=== PATIENT | male | born 1940 | race Caucasian/White ===

== ENCOUNTER 2022-03-02 16:34 | Inpatient (IN) | payer MEDICARE ==
[~2022-03-02] VITALS: Ht 188 cm; Wt 112.3 kg
[2022-03-02 18:08] LABS: BASOPHILS ABSOLUTE AUTO 0.05 K/mm3 (0.00-0.23); BASOPHILS PERCENT AUTO 0 % (0-2); EOSINOPHILS ABSOLUTE AUTO 0.02 K/mm3 (0.00-0.68); EOSINOPHILS PERCENT AUTO 0 % (0-6); Hematocrit 39.8 % (37.0-53.0); Hemoglobin 12.3 g/dL (13.5-17.5); IMMATURE GRAN ABSOLUTE AUTO 0.06 K/mm3 (0.00-0.10); IMMATURE GRAN PERCENT AUTO 0 % (0-1); LYMPHOCYTES PERCENT AUTO 4 % (21-46); MONOCYTES ABSOLUTE AUTO 0.81 K/mm3 (0.16-1.47); MONOCYTES PERCENT AUTO 6 % (4-13); Mean Corpuscular HGB 24.6 pg (26.0-34.0); Mean Corpuscular HGB Conc 30.9 g/dL (31.5-36.5); Mean Corpuscular Volume 80 fL (80-100); Mean Platelet Volume 11.3 fL (9.1-12.4); NEUTROPHILS PERCENT AUTO 89 % (41-73); Platelet Count 110 K/mm3 (150-400); RDW Coefficient Variation 19.4 % (11.7-14.2); RDW Standard Deviation 55.2 fL (35.1-46.3); White Blood Cell Count 14.34 K/mm3 (4.00-11.30)
[2022-03-02 18:26] LABS: Bilirubin, Total 1.1 mg/dL (0.1-1.0); Bun/Creatinine Ratio 18.2 (12.0-20.0); Calcium, Blood 9.8 mg/dL (8.5-10.1); Creatinine, Blood 1.21 mg/dL (0.60-1.20); Globulin, Blood 2.9 g/dL (2.2-4.0); Potassium, Blood 4.1 mmol/L (3.5-5.5); Total Protein, Blood 5.9 g/dL (6.4-8.2)
[2022-03-02 18:47] LABS: Influenza A, PCR NEGATIVE (NEGATIVE); Influenza B, PCR NEGATIVE (NEGATIVE); Resp Syncytial Virus, PCR NEGATIVE (NEGATIVE); SARS-Cov-2 (COVID-19) PCR, MMC NEGATIVE (NEGATIVE)
[2022-03-02 22:09] LABS: CHOL/HDL RATIO 3.2; Cholesterol 117 mg/dL (50-200); HDL Cholesterol 36 mg/dL (>39); LDL/HDL RATIO 1.7; Low Density Lipoprotein Chol 63 mg/dL (0-110); Triglycerides 92 mg/dL (30-160); Very Low Density Lipoprot Chol 18 mg/dL (6-32)
[2022-03-03 01:26] LABS: BASOPHILS ABSOLUTE AUTO 0.03 K/mm3 (0.00-0.23); BASOPHILS PERCENT AUTO 0 % (0-2); EOSINOPHILS PERCENT AUTO 0 % (0-6); Hematocrit 38.3 % (37.0-53.0); Hemoglobin 11.8 g/dL (13.5-17.5); IMMATURE GRAN ABSOLUTE AUTO 0.05 K/mm3 (0.00-0.10); IMMATURE GRAN PERCENT AUTO 1 % (0-1); LYMPHOCYTES ABSOLUTE AUTO 0.66 K/mm3 (0.84-5.20); LYMPHOCYTES PERCENT AUTO 7 % (21-46); MONOCYTES ABSOLUTE AUTO 0.54 K/mm3 (0.16-1.47); MONOCYTES PERCENT AUTO 6 % (4-13); Mean Corpuscular HGB 24.6 pg (26.0-34.0); Mean Corpuscular HGB Conc 30.8 g/dL (31.5-36.5); Mean Corpuscular Volume 80 fL (80-100); NEUTROPHILS ABSOLUTE AUTO 7.62 K/mm3 (1.96-9.15); NEUTROPHILS PERCENT AUTO 86 % (41-73); Platelet Count 119 K/mm3 (150-400); RDW Coefficient Variation 19.5 % (11.7-14.2); Red Blood Cell Count 4.79 M/mm3 (4.30-5.90)
[2022-03-03 01:27] LABS: Mean Platelet Volume 11.3 fL (9.1-12.4)
[2022-03-03 01:38] LABS: Anti-Xa UFH, PHA Monitoring <0.10 IU/mL; International Normalized Ratio 1.14; Prothrombin Time Results 11.9 Sec (9.7-11.5)
[2022-03-03 02:09] LABS: Albumin/Globulin Ratio 1.1 (0.8-1.8); Bilirubin, Total 0.6 mg/dL (0.1-1.0); Bun/Creatinine Ratio 16.7 (12.0-20.0); Calcium, Blood 9.3 mg/dL (8.5-10.1); Creatinine, Blood 1.44 mg/dL (0.60-1.20); Globulin, Blood 2.8 g/dL (2.2-4.0); Potassium, Blood 4.7 mmol/L (3.5-5.5); Total Protein, Blood 5.8 g/dL (6.4-8.2)
[2022-03-03] MEDS ORDERED: FURO20 PO (04:37)
[2022-03-03] MEDS ORDERED: ATORVASTATIN CA20 MG PO (04:38)
--- NOTE | 2022-03-03 05:31 | NUR ---
END SHIFT SUMMARY NEW PT ARRIVED FROM ED. PT COMPLAINED OF DIZZYNESS AND NOT FEELING WELL PT ON MONITOR WAS IN AFIB WITH IN 10 MINS PT STATED HE FELT MUCH BETTER LOOK AT MONITIR AND PT HAD CONVERTED OUT OF AFIB AND WAS CURRENTLY IN SINUS. PT DID NOT COMPLAIN OF ANY OTHER "DIZZY" SPELLS. PT IS A&O X4 KNUTSON GENERLIZED WEEKNESS PT IS DEVELOPMENTALY DELAYED AND HEALTH LITERACY IS QUITE LOW. PT HAS AN ELEVATED TROPINE 1400 BNP 85 AND A LATIC OF 2.3 ALL RESULTS GIVEN TO NIGHT HOSPOTALIS. PT WAS STARTED ON HEPARIN. WILL CONTINUE TO MONINTOR AND REPORT OFF TO ONCOMING RN
--- NOTE | 2022-03-03 08:00 | NUR ---
Received report from Noc shift RN. Patient was awake in bed while getting report in room. He asked several questions about A-Fib that was discussed in report. He is alert and oriented enough to ask questions and manage his needs. he repeatedly has questions about same thing and when answered he asked to explain again. He is very fixated on certain subjects. He assist with care.He has 20ga IV to LW and is infusing heparin at 15 unit/kg/hr, he also has 20ga PowerGlide in CJ and is infusing 100 ml/hr. He uses urinal with minimal assist.
[2022-03-03 08:09] LABS: Bun/Creatinine Ratio 18.1 (12.0-20.0); Calcium, Blood 9.1 mg/dL (8.5-10.1); Creatinine, Blood 1.49 mg/dL (0.60-1.20); Potassium, Blood 4.6 mmol/L (3.5-5.5)
--- NOTE | 2022-03-03 09:30 | NUR ---
He has been NPO as to wait to see what Cardiology wants to do. Dr Gonzalez has been by to assess and is going to follow up we ER to find EKG that stated he was in a-fib. He is currently in SR 70's and systolics in the 90-100's and MAP >65. No changes to Heparin and or NS. He remains on RA and sats >90%. Dr Gonzalez will reassess his heparing when Troponins trand down. ECHO ordered.
--- NOTE | 2022-03-03 12:00 | NUR ---
Patient ate lunch and ate everything without crumbs left. No current changes to gtt's. He continues on RA amnd sats >90%. Changed his underwear and place pullup uon him as he stated he was wet. Awainting next Troponin to see if trended down and call Dr Gonzalez to shut off Heparin. He is independent in bed and needs to be reminded not to get out and he states he still feels dizzy whe sitting up. Systolic in the 90's and MAP >65
--- NOTE | 2022-03-03 14:35 | NUR ---
No significant changes with patient. Heparin changed to 14 units/kg/hr change by pharmacy. No other changes. Dr Gonzalez called and we will continue Heparin.
--- NOTE | 2022-03-03 15:30 | NUR ---
Patient has used call light appropriately. Has a little difficult time with urinal but continues to manage and call for assistance. Heparin continues and will do renal function in am to see if he is able to do CT Angio for possible PE. NS continues at 100 ml/hr. He remains on RA and sats >90%.
--- NOTE | 2022-03-03 17:47 | NUR ---
Patient has been resting in bed watching TV off and on He is on RA and sats >90%. He has 20ga IV to LW and is infusing 14 units/kg/hr of Heparin until Renal function tomorrow am and will then see if CT angio is possile. He also has NS at 100ml/hr infusing thro 20 ga PowerGlide in CJ. He has been doing pretty well with using urinal with minimal assist and calls if not. We placed in in pull ups as he has some spillage with urinal occassionally. He has been very pleasant with care and assist with positioning while independent in bed. He is sitting up in bed eating dinner.
--- NOTE | 2022-03-03 19:32 | NUR ---
ASSUMED CARE OF PT RECIEVED BEDSIDE REPORT FROM JAYASHREE MCDANIEL. UPDATED ON GOALS OF CARE AND ACTIVITIES THAT OCCURRED FOR DAYSHIFT.
[2022-03-04 04:06] LABS: Hematocrit 34.9 % (37.0-53.0); Hemoglobin 10.9 g/dL (13.5-17.5); Mean Corpuscular HGB 24.9 pg (26.0-34.0); Mean Corpuscular HGB Conc 31.2 g/dL (31.5-36.5); Mean Corpuscular Volume 80 fL (80-100); Mean Platelet Volume 11.5 fL (9.1-12.4); Platelet Count 107 K/mm3 (150-400); RDW Coefficient Variation 19.7 % (11.7-14.2); RDW Standard Deviation 56.9 fL (35.1-46.3); Red Blood Cell Count 4.37 M/mm3 (4.30-5.90); White Blood Cell Count 9.11 K/mm3 (4.00-11.30)
[2022-03-04 04:18] LABS: Bun/Creatinine Ratio 18.5 (12.0-20.0); Calcium, Blood 9.6 mg/dL (8.5-10.1); Creatinine, Blood 1.3 mg/dL (0.60-1.20); Potassium, Blood 4.4 mmol/L (3.5-5.5)
[2022-03-04 04:40] LABS: Source, Urine Voided
[2022-03-04 04:42] LABS: Appearance, Urine Clear (Clear); Bilirubin, Urine Neg (Neg); Blood, Urine Neg (Neg); Color, Urine Yellow (P-Yellow); Glucose Qualitative, Urine Neg (Neg); Ketones, Urine Neg (Neg); Leukocyte Esterase, Urine Neg (Neg); Nitrite, Urine Neg (Neg); Protein, Urine Neg (Neg); Specific Gravity, Urine 1.015 (1.003-1.022); Urobilinogen, Urine NORM (Normal)
--- NOTE | 2022-03-04 05:48 | NUR ---
END SHIFT SUMMARY PT STRUGGLED WITH SLEEP AT START OF EVENING AFTER FINALY BEING ABLE TO REST. WHILE SLEEPING DEEPLY PT STARTED HAVING DESATURATION EPISODES TO MID 80'S AND ALSO FLIPPING IN AND OUT OF SINUS ARYTHMIA AND BRADICARDIC EPISODES WITH A COUPLE OF SHORT PAUSES. I THEN PLACED PT ON NC 2L AND PT HAS MAINTAINED O2 SATURATIONS AND HAS NOT FLIPPED INTO AN IRREGLAR BRADICARDIC RYTHEM. ADJUSTED HEPARIN DOWN TO 13 UNITS/KG/HR. CREATINE HAS IMPROVED PLAN IS TO DO CTA WILL CONTINUE TO MONITOR AND REPORT TO ONCOMING RN
--- NOTE | 2022-03-04 08:00 | NUR ---
Received report from Noc RN. Patient awake during in room report. He is alert and oriented to baseline. He is currently on 2L via NC as he had some apnea last night and sats 98%. I placed him back on Ra and sats 93%. He is sitting up in bed currently eating breakfast. He has 20ga IV in LW and is infusing Heparin at 13 mcg/kg/min and LR at 100 ml/hr. Dr Mg placed order for CT Angio and will call CT to schedule. He also has 20ga PowerGlide in CJ and has fluids infuaing. He has urinal at bedside and uses appropriately. He has pullup in place. He denies any pain.
--- NOTE | 2022-03-04 10:55 | NUR ---
Patient went to CT and tolerated well. Patient was up to bedside cammode and had small soft cobb stool and recieved quiick bath while up in chair. Fluids and Heparin dc'd and started on Eliquis. Patient is now med with tele. He tolerated am meds with sips of water.
--- NOTE | 2022-03-04 14:58 | NUR ---
No significant changes with patient. He has been sleeping last few hours. He remains on RA and sats >90%. He is awaiting medwith tele bed. Calls appropriately and urinal at bedside .
--- NOTE | 2022-03-04 17:03 | NUR ---
Gave report to RN for 363. Patient is transferring up to [place] [id number] via wheelchair and all his belongings. He remains on RA while awake. Dinner going up with patient.
[2022-03-05 04:45] LABS: Hematocrit 35.3 % (37.0-53.0); Hemoglobin 11.1 g/dL (13.5-17.5); Mean Corpuscular HGB 25.3 pg (26.0-34.0); Mean Corpuscular HGB Conc 31.4 g/dL (31.5-36.5); Mean Corpuscular Volume 81 fL (80-100); Mean Platelet Volume 11.2 fL (9.1-12.4); Platelet Count 102 K/mm3 (150-400); RDW Coefficient Variation 19.6 % (11.7-14.2); RDW Standard Deviation 57.3 fL (35.1-46.3); Red Blood Cell Count 4.38 M/mm3 (4.30-5.90); White Blood Cell Count 7.36 K/mm3 (4.00-11.30)
[2022-03-05 05:00] LABS: Bun/Creatinine Ratio 20.9 (12.0-20.0); Calcium, Blood 9.5 mg/dL (8.5-10.1); Creatinine, Blood 1.1 mg/dL (0.60-1.20); Potassium, Blood 4.2 mmol/L (3.5-5.5)
--- NOTE | 2022-03-05 06:08 | NUR ---
SHIFT SUMMARY; PATIENT HAS PLEASANT AFFECT AND IS COOPERATIVE WITH CARE. HE REMAINS ON TELE. HIS HR DURING NOC SHIFT IS NOTED TO DROP IN THE BRADYCARDIC RANGE INTERMITTENTLY. TELEMETRY CALLS THIS RN TO LET HER KNOW THAT HE ALSO HAS 3 SECOND PAUSES OCCASIONALLY. THIS RN PLACES PATIENT ON 2 LITERS O2 FOR POSSIBLE LAMBERT AND HIS HR WAS ABLE TO STAY IN THE 70 RANGE FOR REST OF NIGHT. HIS LUNGS ARE DIM IN THE BASES AND WHEEZES ARE NOTED IN THE RIGHT LOWER LOBE. PATIENT IS ENCOURAGED TO TAKE DEEP BREATHS AND COUGH TO ASSIST IN CLEARING HIS LUNGS. WILL REMAIN AVAILABLE FOR THIS PATIENT FOR ANY WANTS OR NEEDS THAT COME UP UNTIL REPORT AND HAND OFF TO DAY SHIFT RN.
--- NOTE | 2022-03-05 16:18 | NUR ---
SHIFT SUMMARY PT RESTING QUIETLY AT START OF SHIFT. WOKE EASILY FOR CARE. PLEASANT AND CO-OP. SBA TO BTH[facility]. DR AMOR IN TO SEE PT THIS AM. HOME O2 EVAL ORDERED. PT ABLE TO AMBULATE IN HALLS W/O O2; BIOX WNL'S. PT LATER UP TO [facility] AND ABLE TO SHAVE HIMSELF AND CHANGE HIS CLOTHES. BLE EDEMA; PT REPORTING SWELLING MUCH LESS THOUGH NOW THAT HE LOST WEIGHT. LLE LARGER THAN RLE. PT KEEPING THEM ELEVATED TODAY. HOPING TO GO HOME TODAY OR TOMORROW. MEDIA MARKETING COORDINATOR IN TALKING WITH PT. DENIES NEEDS. NO C/O. CALL LT IN REACH.
[2022-03-06] MEDS ORDERED: HYDCHL25 PO (00:03)
--- NOTE | 2022-03-06 01:11 | NUR ---
03/05/222016 PT LYING IN BED, DENIES ANY DISCOMFORT AT THIS TIME. PT'S LE'S ARE VERY LARGE BUT NOT PITTING. TELE NSR WITH 1ST DEGREE BLOCK AT 62. NO OTHER APPARENT SIGNS OF DISTRESS. CALL LIGHT IS IN REACH. BED ALARM IS ON.
--- NOTE | 2022-03-06 01:13 | NUR ---
03/05/22 2200 PT LYING IN BED, EYES CLOSED, APPEARS TO BE RESTING. BREATHING IS EVEN, UNLABORED. NO APPARENT SIGNS OF DISTRESS. CALL LIGHT IS IN REACH.
--- NOTE | 2022-03-06 01:38 | NUR ---
0000 PT LYING IN BED, EYES CLOSED, APPEARS TO BE RESTING. BREATHING IS EVEN, UNLABORED.NO APPARENT SIGNS OF DISTRESS. CALL LIGHT IS IN REACH. BED ALARM IS ON.
--- NOTE | 2022-03-06 02:05 | NUR ---
PT LYING IN BED, EYES CLOSED, APPEARS TO BE RESTING. BREATHING IS EVEN, UNLABORED.NO APPARENT SIGNS OF DISTRESS.CALL LIGHT IS IN REACH. BED ALARM IS ON.
--- NOTE | 2022-03-06 03:26 | NUR ---
RT REPORTS PT STATED HE HAD SLEPT FOR ABOUT 2 HOURS UP TO THIS POINT UNINTERRUPTED. PT LYING IN BED, DENIES NEED FOR ANYTHING AT THIS TIME. CALL LIGHT IS IN REACH. BED ALARM IS ON.
--- NOTE | 2022-03-06 03:37 | NUR ---
PT IS AAO X 3, DENIED DISCOMFORT FOR THIS SHIFT. TELE NSR WITH 1ST DEGREE BLOCK. EDEMA IN LE'S, NOT PITTING.
--- NOTE | 2022-03-06 05:37 | NUR ---
AT 0423 PT HAD A 2.48 SECOND PAUSE ON THEIR TELE MONITOR. TELE THEN REPORTED THAT THEY WERE CONTINUING TO HAVE WHAT COULD BE PAUSES AND COULD BE A LONG QRS, AND THAT THEY WERE HAVING THEM MORE FREQUENTLY. AN EKG WAS DONE, IT SHOWED NSR WITH A 1ST DEGREE AV BLOCK, THE SAME THE PREVIOUS EKG. VS OK, PT DENIES ANY SYMPTOMS. SPOKE WITH DR RAHMAN RE THIS, ORDERS ARE TO CONTINUE MONITORING WITH TELE FOR NOW. PT IS CURRENTLY LYING IN BED, AWAKE, DENIES NEED FOR ANYTHING AT THIS TIME. CALL LIGHT IS IN REACH. BED ALARM IS ON. NO OTHER CHANGES THIS SHIFT.
--- NOTE | 2022-03-06 11:15 | NUR ---
NOTIFIED OF 2 SECOND PAUSE ON TELE MONITOR. VSS. PT DENIES SOB, CP/PRESSURE. PT ASLEEP DURING PAUSE, .
[2022-03-06] MEDS ORDERED: ELIQUIS5 M2 PO (15:30)
--- NOTE | 2022-03-06 17:30 | NUR ---
DISCHARGE PT A&OX4 @ TIME OF DC DIRECTION. PT PAYING FOR TRANSPORT. MEDS FAXED TO [facility] ID'ED. TOLERATING PO INTAKE WELL. F/U APPT. SET FOR 03/09/22.
== END 2022-03-06 17:31 | disposition home or self-care (01) | DRG 175 ==
LOC: ER 16:34 → ICUE 19:40 → ERHOLD 19:40 → ICUE 20:45 → MEDS 03-04 17:11
PROVIDERS: Emergency Medicine; Internal Medicine; ADMIT Family Medicine
DX: I26.09 Other pulmonary embolism with acute cor pulmonale (principal); J18.9 Pneumonia, unspecified organism; J96.01 Acute respiratory failure with hypoxia; N17.9 Acute kidney failure, unspecified; F84.9 Pervasive developmental disorder, unspecified; Z66 Do not resuscitate; R65.10 Systemic inflammatory response syndrome (SIRS) of non-infectious origin without acute organ dysfunction; I82.403 Acute embolism and thrombosis of unspecified deep veins of lower extremity, bilateral; R77.8 Other specified abnormalities of plasma proteins; G47.33 Obstructive sleep apnea (adult) (pediatric); I27.20 Pulmonary hypertension, unspecified; Z20.822 Contact with and (suspected) exposure to COVID-19; I95.9 Hypotension, unspecified; E78.00 Pure hypercholesterolemia, unspecified; I71.2 Thoracic aortic aneurysm, without rupture; E66.9 Obesity, unspecified; I48.91 Unspecified atrial fibrillation; R63.4 Abnormal weight loss; D64.9 Anemia, unspecified; D69.6 Thrombocytopenia, unspecified; R94.5 Abnormal results of liver function studies; Z85.46 Personal history of malignant neoplasm of prostate; Z79.01 Long term (current) use of anticoagulants; Z68.31 Body mass index [BMI] 31.0-31.9, adult; Z98.890 Other specified postprocedural states; Z79.02 Long term (current) use of antithrombotics/antiplatelets; W19.XXXA Unspecified fall, initial encounter
CPT/HCPCS: 0241U; 36415; 71045; 71260; 80048; 80053; 80061; 81003; 83605; 83880; 84145; 84443; 84484; 85025; 85027; 85520; 85610; 87040; 93005; 93010; 93306; 93970; 94761; 94762; 96374; 99285-25; A9270; C1751; J0696; J1644; J7030; J7120; Q9967

== ENCOUNTER 2024-05-22 03:52 | Emergency (ER) | payer MEDICARE ==
[~2024-05-22] VITALS: Ht 188 cm; Wt 90.7 kg
[~2024-05-22 03:52] MED LIST: ATORVASTATIN CA20 MG PO; ELIQUIS5 M2 PO; FURO20 PO; HYDCHL25 PO
[2024-05-22 05:21] LABS: BASOPHILS ABSOLUTE AUTO 0.04 K/mm3 (0.00-0.23); BASOPHILS PERCENT AUTO 0 % (0-2); EOSINOPHILS PERCENT AUTO 0 % (0-6); Hemoglobin 9.7 g/dL (13.5-17.5); IMMATURE GRAN ABSOLUTE AUTO 0.07 K/mm3 (0.00-0.10); IMMATURE GRAN PERCENT AUTO 1 % (0-1); LYMPHOCYTES ABSOLUTE AUTO 0.54 K/mm3 (0.84-5.20); LYMPHOCYTES PERCENT AUTO 5 % (21-46); MONOCYTES ABSOLUTE AUTO 0.36 K/mm3 (0.16-1.47); MONOCYTES PERCENT AUTO 3 % (4-13); Mean Corpuscular HGB 27.9 pg (26.0-34.0); Mean Corpuscular HGB Conc 32.3 g/dL (31.5-36.5); Mean Corpuscular Volume 86 fL (80-100); NEUTROPHILS ABSOLUTE AUTO 9.82 K/mm3 (1.96-9.15); NEUTROPHILS PERCENT AUTO 91 % (41-73); Platelet Count 189 K/mm3 (150-400); RDW Coefficient Variation 15.2 % (11.7-14.2); RDW Standard Deviation 48.1 fL (35.1-46.3); Red Blood Cell Count 3.48 M/mm3 (4.30-5.90); White Blood Cell Count 10.83 K/mm3 (4.00-11.30)
[2024-05-22 05:40] LABS: International Normalized Ratio 1.06; Prothrombin Time Results 11.3 Sec (9.7-11.5)
[2024-05-22 05:53] LABS: Albumin, Blood 3.1 g/dL (3.4-5.0); Bilirubin, Total 0.4 mg/dL (0.1-1.0); Bun/Creatinine Ratio 39.3 (12.0-20.0); Calcium, Blood 9.5 mg/dL (8.5-10.1); Creatinine, Blood 1.17 mg/dL (0.60-1.20); Total Protein, Blood 6.1 g/dL (6.4-8.2)
[2024-05-22 06:30] VITALS: BP 157/71
[2024-05-22] MEDS ORDERED: AFRIN15 M6 (07:02)
== END 2024-05-22 07:57 | disposition home or self-care (01) ==
LOC: ER 03:52
PROVIDERS: Emergency Medicine
DX: R04.0 Epistaxis (principal); D64.9 Anemia, unspecified; E78.5 Hyperlipidemia, unspecified; Z79.899 Other long term (current) drug therapy
CPT/HCPCS: 80053; 85025; 85610; 85730; 99283